=== PATIENT | male | born 1980 | race Two or more races ===

== ENCOUNTER 2018-07-03 16:13 | Emergency (ER) | payer OTHER ==
[~2018-07-03] VITALS: Ht 180.3 cm; Wt 74.8 kg
[2018-07-03 16:24] VITALS: BP 114/74
== END 2018-07-03 17:34 | disposition home or self-care (01) ==
LOC: ER 16:15
DX: G56.01 Carpal tunnel syndrome, right upper limb (principal); F98.8 Other specified behavioral and emotional disorders with onset usually occurring in childhood and adolescence; Z98.890 Other specified postprocedural states
CPT/HCPCS: 73110; A4606; Z7610